=== PATIENT | male | born 1950 | race Caucasian/White ===

== ENCOUNTER → 2016-08-20 | Outpatient (CLI) | payer OTHER ==
[~2016-08-20] MED LIST: ALFU10TA30 PO; ASPI81TA28 PO; CANA1TAB6 PO; LISI-789 PO
[2016-08-20 11:28] LABS: BASO % 0.5 %; BASO ABS # 0.02 K/uL (0-0.2); COMPLETE YES; EOS % 3.9 %; HEMATOCRIT 42.6 % (42-52); IG% 0.3 %; LYMPH % 31.2 %; LYMPH ABS # 1.19 K/uL (1.2-3.4); MEAN CELL VOLUME 85.2 fL (80-100); MEAN CORPUSCULAR HEMOGLOBIN 29.8 pg (25-34); MEAN PLATELET VOLUME 9.5 fL (7.4-10.4); MONO % 8.9 %; NEUT % 55.2 %; PLATELET COUNT 110 K/uL (130-400); WHITE BLOOD COUNT 3.81 K/uL (4.8-10.8)
[2016-08-20 11:41] LABS: ESTIMATED AVERAGE GLUCOSE 131 mg/dl; HA1C FLAG Normal (Normal)
[2016-08-20 11:50] LABS: BLOOD UREA NITROGEN 27 mg/dl (7-18); BUN/CREATININE RATIO 22.6 (10-20); CARBON DIOXIDE 27 mmol/L (21-32); CHLORIDE 106 mmol/L (98-107); GLUCOSE 135 mg/dl (70-99); POTASSIUM 4.4 mmol/L (3.5-5.1); SODIUM 139 mmol/L (136-145)
[2016-08-20 12:01] LABS: % FREE PSA 9.5 %; FREE PSA 0.92 ng/ml
[2016-08-20 14:05] LABS: RATIO 11.5 mcg/mg (0-30.0)
== END | disposition home or self-care (01) ==
LOC: C.LABBC 07:45
PROVIDERS: ATTEND Family Medicine
DX: R97.20 Elevated prostate specific antigen [PSA] (principal); E11.9 Type 2 diabetes mellitus without complications; D69.6 Thrombocytopenia, unspecified

== ENCOUNTER → 2016-08-22 | Outpatient (CLI) | payer OTHER ==
--- NOTE | 2016-08-22 09:29 | DIAGNOSTIC IMAGING REPORT ---
LEFT RIBS UNILATERAL WITH PA CHEST CLINICAL HISTORY: 66 year-old Male presenting with left-sided chest wall pain. TECHNIQUE: Frontal and oblique views of the left ribs as well as PA view of the chest were obtained. COMPARISON: CT chest from 08/09/2015 and chest x-ray from 08/05/2015. FINDINGS: Widening of the left acromioclavicular joint indicative of prior acromioclavicular separation. No displaced left rib fracture. Remaining osseous structures also normal. Cardiomediastinal silhouette normal. Lungs and pleural spaces clear. No pneumothorax. Upper abdomen normal. IMPRESSION: 1. No evidence of acute rib fracture. Electronically signed by: Atif Clark 08/22/2016 9:27 AM Dictated Date/Time: 08/22/2016 9:23 AM
== END | disposition home or self-care (01) ==
LOC: C.RADBC 09:09
PROVIDERS: ATTEND Nurse Practitioner Family
DX: R07.89 Other chest pain (principal)

== ENCOUNTER → 2016-09-18 | Outpatient (CLI) | payer OTHER ==
[2016-09-18 10:57] LABS: HEMATOCRIT 43.9 % (42-52); MEAN CELL VOLUME 85.2 fL (80-100); MEAN CORPUSCULAR HEMOGLOBIN 30.7 pg (25-34); MEAN PLATELET VOLUME 9.4 fL (7.4-10.4); PLATELET COUNT 129 K/uL (130-400); RED BLOOD COUNT 5.15 M/uL (4.7-6.1); WHITE BLOOD COUNT 5.15 K/uL (4.8-10.8)
[2016-09-18 11:06] LABS: PROTHROMBIN TIME (PATIENT) 10.5 SECONDS (9.0-12.0)
[2016-09-18 11:16] LABS: ALT/SGPT 30 U/L (12-78); AST/SGOT 13 U/L (15-37); BLOOD UREA NITROGEN 22 mg/dl (7-18); BUN/CREATININE RATIO 19.6 (10-20); CALCIUM 9.5 mg/dl (8.5-10.1); CARBON DIOXIDE 27 mmol/L (21-32); CHLORIDE 108 mmol/L (98-107); GLUCOSE 133 mg/dl (70-99); POTASSIUM 4.4 mmol/L (3.5-5.1); SODIUM 141 mmol/L (136-145)
[2016-09-18 11:18] LABS: ALB/GLOB RATIO 1.2 (0.9-2); ALKALINE PHOSPHATASE 97 U/L (45-117)
[2016-09-18 11:21] LABS: URINE APPEARANCE CLEAR (CLEAR); URINE BILIRUBIN NEG (NEG); URINE COLOR YELLOW; URINE EPITHELIAL CELL AUTO 0-5 /lpf (0-5); URINE NITRITE NEG (NEG); URINE PH 5.5 (4.5-7.5); URINE SPECIFIC GRAVITY 1.028 (1.000-1.030); UROBILINOGEN NEG (NEG); ZZUR CULT IF INDIC CLEAN CATCH NO
[2016-09-18 11:23] LABS: MANUAL MICROSCOPIC REQUIRED? NO; REVIEW REQ? NO
== END | disposition home or self-care (01) ==
LOC: C.LABBC 08:50
PROVIDERS: ATTEND Nurse Practitioner Adult Health
DX: E88.81 Metabolic syndrome and other insulin resistance (principal); E11.9 Type 2 diabetes mellitus without complications

== ENCOUNTER → 2016-10-25 | Outpatient (CLI) | payer OTHER ==
[2016-10-25 16:59] LABS: URINE APPEARANCE CLEAR (CLEAR); URINE BILIRUBIN NEG (NEG); URINE COLOR YELLOW; URINE EPITHELIAL CELL AUTO 0-5 /lpf (0-5); URINE NITRITE NEG (NEG); URINE SPECIFIC GRAVITY 1.038 (1.000-1.030); UROBILINOGEN NEG (NEG)
[2016-10-25 17:06] LABS: MANUAL MICROSCOPIC REQUIRED? NO; REVIEW REQ? YES
== END | disposition home or self-care (01) ==
LOC: C.LAB1850 15:20
PROVIDERS: ATTEND Nurse Practitioner Family
DX: R39.9 Unspecified symptoms and signs involving the genitourinary system (principal)

== ENCOUNTER → 2017-01-15 | Outpatient (CLI) | payer OTHER ==
[~2017-01-15] MED LIST changes: +ALFU10TA2 PO; -ALFU10TA30 PO
[2017-01-15 13:11] LABS: BASO % 0.6 %; BASO ABS # 0.03 K/uL (0-0.2); COMPLETE YES; EOS % 3.3 %; HEMATOCRIT 49.1 % (42-52); IG% 0.2 %; LYMPH % 34.5 %; LYMPH ABS # 1.77 K/uL (1.2-3.4); MEAN CELL VOLUME 84.4 fL (80-100); MEAN CORPUSCULAR HEMOGLOBIN 28.4 pg (25-34); MEAN CORPUSCULAR HGB CONC 33.6 g/dl (32-36); MEAN PLATELET VOLUME 9.6 fL (7.4-10.4); NEUT % 53.4 %; PLATELET COUNT 116 K/uL (130-400); RED BLOOD COUNT 5.82 M/uL (4.7-6.1); WHITE BLOOD COUNT 5.13 K/uL (4.8-10.8)
[2017-01-15 13:58] LABS: CREATININE RANDOM URINE 93.9 mg/dl
[2017-01-15 14:02] LABS: ESTIMATED AVERAGE GLUCOSE 151 mg/dl; HA1C FLAG Normal (Normal)
[2017-01-15 14:09] LABS: RATIO 296.1 mcg/mg (0-30.0)
[2017-01-15 14:23] LABS: ALT/SGPT 29 U/L (12-78); AST/SGOT 16 U/L (15-37); BLOOD UREA NITROGEN 22 mg/dl (7-18); BUN/CREATININE RATIO 19.2 (10-20); CALCIUM 9.2 mg/dl (8.5-10.1); CARBON DIOXIDE 29 mmol/L (21-32); CHLORIDE 104 mmol/L (98-107); CHOLESTEROL 223 mg/dl (0-200); CHOLESTEROL/HDL RATIO 4.5; CREATININE 1.13 mg/dl (0.60-1.40); GLUCOSE 158 mg/dl (70-99); HDL CHOLESTEROL 50 mg/dl; POTASSIUM 4.4 mmol/L (3.5-5.1); SODIUM 137 mmol/L (136-145)
[2017-01-15 14:27] LABS: ALB/GLOB RATIO 1.1 (0.9-2); ALKALINE PHOSPHATASE 85 U/L (45-117); LDL CHOLESTEROL CALCULATED 122 mg/dl; TRIGLYCERIDES 254 mg/dl (0-150); VERY LOW DENSITY LIPOPROT CALC 51 mg/dl
== END | disposition home or self-care (01) ==
LOC: C.LABBC 09:49
PROVIDERS: ATTEND Nurse Practitioner Family
DX: E88.81 Metabolic syndrome and other insulin resistance (principal); R80.9 Proteinuria, unspecified; R97.20 Elevated prostate specific antigen [PSA]